=== PATIENT | female | born 1970 | race Asian ===

== ENCOUNTER 2023-12-01 09:07 | Outpatient (CLI) | payer BC, MEDICAID ==
[~2023-12-01] VITALS: Ht 152.4 cm; Wt 56.7 kg
[2023-12-01] MEDS: albuterol 2.5 MG/3 ML nebule NEB ONE (10:04)
[2023-12-01 10:11] VITALS: PULSE 69; RESP 12; O2SAT 98
== END 2023-12-01 23:59 | disposition home or self-care (01) ==
LOC: RT 09:07
PROVIDERS: ATTEND Nurse Practitioner Family
DX: R05.3 Chronic cough (principal); R06.2 Wheezing
CPT/HCPCS: 94060; 94727; 94729; 94760

== ENCOUNTER 2024-01-28 13:11 | Outpatient (CLI) | payer MEDICAID | END 2024-01-28 23:59 | disposition home or self-care (01) | LOC: MRI 13:11 | PROVIDERS: ATTEND Nurse Practitioner Family | DX: G31.89 Other specified degenerative diseases of nervous system (principal); G93.89 Other specified disorders of brain; M62.81 Muscle weakness (generalized); M47.812 Spondylosis without myelopathy or radiculopathy, cervical region; M48.03 Spinal stenosis, cervicothoracic region; M25.78 Osteophyte, vertebrae | CPT/HCPCS: 70551; 72141 ==